=== PATIENT | female | born 1935 | race Caucasian/White ===

== ENCOUNTER 2017-09-07 13:12 | Emergency (ER) | payer OTHER ==
[~2017-09-07] VITALS: Ht 165.1 cm; Wt 64.6 kg
[~2017-09-07 13:12] MED LIST: AMOX TR-K CLV1 EAC4 PO; ASPIRIN E.C.81 M1 PO; AUGMENTIN875 MG PO; Ambien PO; Ascorbic Acid PO; CIPRODEX OTIC7.5 ML LEFT EAR; COLON HEALTH PROBIOT PO; Calan SR,Covera HS,I PO; IBUPROFEN600 MG PO; LISINOPRIL20 MG PO; LOSARTAN-HCTZ1 EAC2 PO; MOTRIN600 MG PO; MOVE FREE1 CAPSULE PO; Motrin PO; NORCO 5/3251 TABLET PO; OCUVITE LUTEIN1 EACH PO; OCUVITE1 TABLET PO; Omega III EPA + DHA PO; SYSTANE 0.300 DROP/1 BOTH EYES; TRAMADOL HCL50 MG PO; Toprol XL PO; ULTRAM50 MG PO; VALTREX1000 MG PO; ZOFRAN ODT4 MG PO; Zestril,Prinivil PO
[2017-09-07 16:06] LABS: HEMATOCRIT 36.6 % (36.0-46.0); MCH 34.3 PG (29.0-34.0); MCHC 34.7 G/DL (30.0-36.0); MCV 98.9 FL (83-99); PLATELET COUNT 233 K/uL (156-360); RBC DIS.WIDTH-CV 12.9 % (11.8-14.6); RBC DIS.WIDTH-SD 46.5 % (39-53); WHITE BLOOD COUNT 7.3 K/uL (4.1-10.2)
[2017-09-07 16:12] LABS: PROTHROMBIN TIME 11.1 SEC (10.2-12.9)
[2017-09-07 16:52] VITALS: BP 124/64
== END 2017-09-07 16:53 | disposition home or self-care (01) ==
LOC: EME 13:12
PROVIDERS: Emergency Medicine
DX: M71.22 Synovial cyst of popliteal space [Baker], left knee (principal); M17.12 Unilateral primary osteoarthritis, left knee; M79.605 Pain in left leg; Z86.718 Personal history of other venous thrombosis and embolism; I10 Essential (primary) hypertension; Z88.5 Allergy status to narcotic agent; Z96.611 Presence of right artificial shoulder joint
CPT/HCPCS: 80048; 85027; 85379; 85610; 93971; 99281; 99284

== ENCOUNTER 2017-09-24 12:43 | Emergency (ER) | payer OTHER ==
[~2017-09-24] VITALS: Ht 165.1 cm; Wt 64.5 kg
[2017-09-24 14:07] LABS: MCH 34.2 PG (29.0-34.0); MCHC 35.4 G/DL (30.0-36.0); MCV 96.6 FL (83-99); MEAN PLAT.VOLUME 10.7 uM^3 (9.5-12.4); PLATELET COUNT 194 K/uL (156-360); RBC DIS.WIDTH-CV 13.1 % (11.8-14.6); RBC DIS.WIDTH-SD 46.1 % (39-53); RED BLOOD COUNT 3.83 M/uL (3.80-5.20); WHITE BLOOD COUNT 6.4 K/uL (4.1-10.2)
[2017-09-24 14:22] LABS: CHLORIDE 108 mEq/L (99-109); POTASSIUM 3.8 mEq/L (3.7-5.4); SODIUM 143 mEq/L (136-147)
[2017-09-24 14:24] LABS: GLUCOSE 102 mg/dL (70-99)
[2017-09-24 14:25] LABS: ANION GAP 13 MEQ/L (2-14)
[2017-09-24 14:28] LABS: GFR ESTIMATE (CALCULATED) > 59 mL/min/
[2017-09-24 14:29] LABS: UREA NITROGEN (BUN) 22 mg/dL (9-23)
[2017-09-24 14:32] LABS: TROP-I INTERPRETATION NEGATIVE; TROPONIN-I 0.01 ng/mL (0.0-0.30)
[2017-09-24 16:22] LABS: TROP-I INTERPRETATION NEGATIVE; TROPONIN-I < 0.01 ng/mL (0.0-0.30)
[2017-09-24 18:00] VITALS: BP 127/66
== END 2017-09-24 19:52 | disposition home or self-care (01) ==
LOC: EME 12:43
PROVIDERS: Emergency Medicine
DX: R07.89 Other chest pain (principal); R00.0 Tachycardia, unspecified; I10 Essential (primary) hypertension; Z86.718 Personal history of other venous thrombosis and embolism
CPT/HCPCS: 71020; 71275; 80048; 84484; 85027; 85379; 93005; 99281; 99284; J7030